=== PATIENT | male | born 1990 | race Caucasian/White ===

== ENCOUNTER 2017-12-08 10:30 | Day surgery (SDC) | payer OTHER, MEDICAID ==
[2017-12-08] MEDS: LIDOCAINE 1% (MPF) 30 ML INJ
[~2017-12-08 10:30] MED LIST: BUPIVACAINE 0.25%/EPI (MDV) 50 ML VIAL INJ; CEFAZOLIN 2 GM/50 ML (PMX) 50 ML IVPB; SOD CHLORIDE 0.9% 1,000 ML IV
[2017-12-08] MEDS ORDERED: HYDROCODONE/APAP (5/325) TAB PO (11:30)
[2017-12-08] MEDS ORDERED: MIDAZOLAM 1 MG/ML 2 ML INJ (11:51)
[2017-12-08] MEDS ORDERED: morphine 10 MG INJ (13:42)
[2017-12-08] MEDS ORDERED: ONDANSETRON 4 MG INJ (13:43)
[2017-12-08] MEDS ORDERED: PROPOFOL 20 ML (13:45)
[2017-12-08] MEDS ORDERED: LIDOCAINE 2% (SDV) 5 ML INJ (13:45)
[2017-12-08] MEDS ORDERED: CEFAZOLIN 1 GM INJ (13:45)
[2017-12-08] MEDS ORDERED: ROCURONIUM 50 MG INJ (13:46)
[2017-12-08] MEDS ORDERED: GLYCOPYRROLATE 0.4 MG INJ (13:46)
[2017-12-08] MEDS ORDERED: NEOSTIGMINE 3 MG/3 ML SYRINGE (13:46)
[2017-12-08] MEDS ORDERED: MEPERIDINE 25 MG INJ IV (14:30)
[2017-12-08] MEDS ORDERED: FENTAnyl 50 MCG/ML VIAL IV (14:30)
[2017-12-08] MEDS ORDERED: DIPHENHYDRAMINE 50 MG INJ IV (14:30)
[2017-12-08] MEDS ORDERED: HYDROmorphONE (0.2 MG/ML) 10ML SYG IV ×2 (14:30)
[2017-12-08] MEDS: ONDANSETRON 4 MG INJ IV (16:16)
== END 2017-12-08 16:44 | disposition home or self-care (01) ==
LOC: SDS 10:30
DX: K40.90 Unilateral inguinal hernia, without obstruction or gangrene, not specified as recurrent (principal); E11.9 Type 2 diabetes mellitus without complications; E66.01 Morbid (severe) obesity due to excess calories; Z68.35 Body mass index [BMI] 35.0-35.9, adult
CPT/HCPCS: 49505; 82962; 88305